=== PATIENT | female | born 1995 | race Caucasian/White ===

== ENCOUNTER 2019-03-18 11:56 | Emergency (ER) | payer OTHER ==
[~2019-03-18] VITALS: Wt 56.8 kg
[2019-03-18 12:26] VITALS: BP 106/61; PULSE 88; RESP 18
[2019-03-18] MEDS ORDERED: ACET325T33 PO (13:03)
[2019-03-18] MEDS ORDERED: LORA10TA3 PO (13:03)
--- NOTE | 2019-03-18 13:35 | ERD ---
ER Documentation Chief Complaint Chief Complaint dry cough, runny nose x2wks. denies NVD, no temp. 26wks . HPI This is a 24-year-old young woman complaining of mild nasal congestion, sore throat, dry cough x2 days, her daughter who is with her also has similar symptoms. She has had no vaginal bleeding or discharge but she is 26 weeks by dates and previously confirmed normal ultrasound. Patient denies pelvic or abdominal pain, no vomiting or diarrhea, no chest pain or shortness of breath ROS All systems reviewed and are negative except as per history of present illness. Medications Home Meds Active Scripts Loratadine* (Loratadine*) 10 Mg Tablet, 10 MG PO DAILY PRN for NASAL CONGESTION, #15 TAB Prov:KORY SIERRA MD 03/18/19 Acetaminophen* (Tylenol*) 325 Mg Tablet, 2 TAB PO Q8 PRN for PAIN AND/OR INFLAMMATION, #30 TAB Prov:KORY SIERRA MD 03/18/19 Allergies Allergies: Coded Allergies: No Known Allergy (Unverified , 10/30/11) FmHx Family History: No diabetes Physical Exam Vitals Vital Signs Date Temp Pulse Resp B/P (MAP) Pulse Ox O2 O2 Flow FiO2 Time Delivery Rate 03/18/19 98.6 88 18 106/61 95 12:26 (76) Physical Exam GENERAL: Well-developed, well-nourished, well-hydrated, in no apparent distress, looks nontoxic in appearance HEENT: Moist mucous membranes, pink conjunctiva, no cervical spine tenderness or step-off deformities, no goiter, no jaundice or icterus, extraocular movements intact without pain. No submandibular induration, and no pharyngeal erythema CARDIAC: Regular rate and rhythm, no murmurs rubs or gallops LUNGS: Clear bilaterally no wheezing crackles or stridor ABDOMEN: Gravid abdomen, nontender, no guarding or rigidity SKIN: Warm and dry to touch, no abrasions, contusions, or hematomas, no lacer ations, no ecchymosis, no target lesions, and without ulcers EXTREMITIES: No clubbing cyanosis or edema, calves are bilaterally symmetrical, no Homans sign, no popliteal cord sign. Distal pulses equal and bilateral PSYCH: Normal affect without agitation or irritability Procedures/MDM Patient has an unremarkable examination and looks well, she has a URI and some nasal congestion I will give her medications to use at home to help with symptoms. Differential diagnoses considered, included but not limited to acute coronary syndrome, pulmonary embolism, aortic dissection, abdominal aortic aneurysm, sepsis, stroke, meningitis, encephalitis, pneumonia, appendicitis, cholecystitis, bowel obstruction, pyelonephritis, nephrolithiasis, cystitis, as well as metabolic, hematologic, and electrolyte abnormalities. As well as abscess, cellulitis, fractures, and dislocations. Patient feels much better at this time, and vital signs are normal, symptoms have improved. I did give strict instructions to return to the ED if symptoms continue or worsen, patient will otherwise follow-up with primary care physician. Patient understood instructions and agreed to plan. Disclaimer: Inadvertent spelling and grammatical errors are likely due to EHR/dictation software use and do not reflect on the overall quality of patient care. Also, please note that the electronic time recorded on this note does not necessarily reflect the actual time of the patient encounter. Departure Diagnosis: Primary Impression: Upper respiratory infection URI type: acute nasopharyngitis (common cold) Qualified Codes: J00 - Acute nasopharyngitis [common cold] Additional Impression: Second trimester Condition: Good Patient Instructions: Uri, Viral, No Abx (Adult) Referrals: STEPHANI PADILLA MD (PCP) KORY SIERRA MD March 18, 2019 13:35
== END 2019-03-18 14:05 | disposition home or self-care (01) ==
LOC: FTE 11:56
DX: O99.512 Diseases of the respiratory system complicating pregnancy, second trimester (principal); Z3A.26 26 weeks gestation of pregnancy
CPT/HCPCS: 99282